=== PATIENT | male | born 1950 | race Caucasian/White ===

== ENCOUNTER → 2017-03-05 | Outpatient (CLI) | payer BC ==
[~2017-03-05] MED LIST: ALBU17AE3 IH; FEXO1TAB49 PO; LISI10TA2 PO; NEBI2.5T5 PO; PRD20T PO
== END ==
LOC: PREOP 05:29
PROVIDERS: ATTEND Internal Medicine
DX: Z01.818 Encounter for other preprocedural examination (principal); Z12.11 Encounter for screening for malignant neoplasm of colon

== ENCOUNTER 2017-09-03 05:31 | Outpatient (CLI) | payer BC ==
[~2017-09-03] VITALS: Ht 172.7 cm; Wt 106.6 kg
[2017-09-03] MEDS ORDERED: LISI10TA2 PO (14:52)
[2017-09-03] MEDS ORDERED: NEBI5TAB8 PO (14:52)
== END 2017-09-03 14:54 ==
LOC: PREOP 05:31
PROVIDERS: ATTEND Internal Medicine
DX: Z01.818 Encounter for other preprocedural examination (principal); Z12.11 Encounter for screening for malignant neoplasm of colon

== ENCOUNTER 2017-09-10 07:53 | Day surgery (SDC) | payer BC ==
[~2017-09-10] VITALS: Ht 172.7 cm; Wt 106.6 kg
[~2017-09-10 07:53] MED LIST changes: +NEBI5TAB8 PO
[2017-09-10] MEDS ORDERED: D5 LR IV SOLUTION 1,000 ML IV STA (07:59)
[2017-09-10] MEDS ORDERED: LIDOCAINE JELLY 2% (XYLOCAINE) 5 ML TUBE MM PRN (08:00)
[2017-09-10] MEDS ORDERED: MIDAZOLAM 2 MG/2 ML (VERSED) VIAL IVP PRN (08:00)
[2017-09-10] MEDS ORDERED: D5 LR IV SOLUTION 1,000 ML IV ONE (08:07)
[2017-09-10 08:17] VITALS: BP 139/64
[2017-09-10] MEDS ORDERED: MIDAZOLAM 2 MG/2 ML (VERSED) VIAL ONE ×2 (09:00)
[2017-09-10] MEDS ORDERED: fentaNYL INJECTION 100 MCG/2 ML AMP ONE (09:00)
[2017-09-10] MEDS ORDERED: LIDOCAINE JELLY 2% (XYLOCAINE) 5 ML TUBE ONE (09:00)
--- NOTE | 2017-09-10 09:06 | Pre-Op Note & Conscious Sedat ---
Pre-Operative Progress Note H&P Reviewed The H&P was reviewed, patient examined and no changes noted. Date H&P Reviewed: Sep 10, 2017 Time H&P Reviewed: 09:00 Conscious Sedation Pre-Proced ASA Class: 2 Airway Mallampati Classification: (red cliff appropriate class) I. II. III, IV Lungs Heart ASA score ASA 1: a normal healthy patient ASA 2: a patient with a mild systemic disease (mid diabetes, controlled hypertension, obesity ASA 3: a patient with a severe systemic disease that limits activity (angina , COPD, prior Myocardial infarction) ASA 4: a patient with an incapacitating disease that is a constant threat to life (CHF, renal failure) ASA 5: a moribund patient not expected to survive 24 hrs. (ruptured aneurysm) ASA 6: a declared brain patient whose organs are being harvested. For emergent operations, add the letter E after the classification Grade 4 Sedation Plan: Analgesia, Amnesia, Plan communicated to team members, Discussed options with patient/fam, Discussed risks with patient/fam Note The patient is an appropriate candidate to undergo the planned procedure, sedation, and anesthesia. The patient immediately re-assessed prior to indication. ANYI BENOIT MD Sep 10, 2017 09:06
[2017-09-10] MEDS: fentaNYL INJECTION 100 MCG/2 ML AMP IVP PRN ×2 (09:11→09:20)
[2017-09-10 10:00] VITALS: BP 137/65
[2017-09-10 10:30] VITALS: BP 130/67
[2017-09-10 10:40] VITALS: BP 130/67
--- NOTE | 2017-09-10 15:15 | OPERATIVE REPORT ---
DATE OF SERVICE: COLONOSCOPY SUMMARY INDICATION FOR THE PROCEDURE: Screening colonoscopy. The patient was placed in left lateral decubitus position. Prior to undergoing colonoscopy, digital rectal evaluation was performed. Anal sphincter tone was normal and the perianal reflex was intact. The prostate was mildly enlarged, anodular and nontender to digital inspection. No abnormalities noted on digital inspection of anal canal or distal rectal vault. The colonoscope was then inserted into the rectum under direct visualization and advanced to the cecum. The cecum was identified by identification of the ileocecal valve and cecal strap. Photographic documentation was obtained. Careful inspection was made as the colonoscope was withdrawn. The patient tolerated the procedure well. FINDINGS: There were no evidence for internal or external hemorrhoids and the rectum was unremarkable. Present in the mid sigmoid colon was a diminutive 3 x 4 mm sessile polyp with uniform mucosal features. It was biopsied and ablated and submitted for histopathology with no subsequent blood loss. One or 2 small proximal sigmoid diverticulum were present with no evidence for diverticulitis. The descending colon, splenic flexure, transverse colon, hepatic flexure, ascending colon and cecum were normal. ASSESSMENT: One diminutive polyp was removed from the sigmoid colon. As long as there are no surprises on histopathology report, we will be abdicating consideration for repeat screening colonoscopy in 10 years. Two small proximal sigmoid diverticulum were present. Digital evaluation of the prostate was compatible with mild benign prostatic hypertrophy. Job ID: [id number] DocumentID: [id number] Dictated Date: 09/10/2017 10:39:30 Billing Associate Date: 09/10/2017 15:15:10 Dictated By: ANYI BENOIT MD MTDD
== END 2017-09-10 10:40 | disposition home or self-care (01) ==
LOC: ENDO 07:53
PROVIDERS: ATTEND Internal Medicine
DX: Z12.11 Encounter for screening for malignant neoplasm of colon (principal); K63.5 Polyp of colon; I12.9 Hypertensive chronic kidney disease with stage 1 through stage 4 chronic kidney disease, or unspecified chronic kidney disease; N18.3 Chronic kidney disease, stage 3 (moderate); J45.909 Unspecified asthma, uncomplicated; Z79.899 Other long term (current) drug therapy

== ENCOUNTER 2018-08-12 05:32 | Outpatient (CLI) | payer BC ==
[~2018-08-12] VITALS: Ht 172.7 cm; Wt 111.1 kg
[2018-08-12] MEDS ORDERED: FLUT1DIS26 IH (10:28)
[2018-08-12] MEDS ORDERED: RT-ALBUINH IH (10:28)
== END 2018-08-12 10:44 | disposition home or self-care (01) ==
LOC: PREOP 05:32
PROVIDERS: ATTEND Surgery
DX: Z01.818 Encounter for other preprocedural examination (principal)

== ENCOUNTER 2018-08-19 06:45 | Day surgery (SDC) | payer BC ==
[2018-08-19] VITALS (8 sets, daily range): BP systolic 131–153; BP diastolic 64–81
[~2018-08-19] VITALS: Ht 172.7 cm; Wt 111.1 kg
[~2018-08-19 06:45] MED LIST changes: +FLUT1DIS26 IH; +RT-ALBUINH IH
[2018-08-19] MEDS ORDERED: proPOfol 200 MG/20 ML (DIPRIVAN) VIAL IV ONE (07:13)
[2018-08-19] MEDS ORDERED: MIDAZOLAM 2 MG/2 ML (VERSED) VIAL ONE ×2 (07:14→08:36)
[2018-08-19] MEDS ORDERED: KETAMINE/NaCl 50 MG/5 ML SYRINGE ONE (07:14)
[2018-08-19] MEDS ORDERED: LACTATED RINGERS 1,000 ML IV PRN (07:43)
[2018-08-19] MEDS ORDERED: ceFAZolin INJECTION 1,000 MG in WATER (STERILE) FOR INJECTION 10 ML IV ONE (07:45)
--- NOTE | 2018-08-19 08:20 | Progress Note-Pre Operative ---
Pre-Operative Progress Note H&P Reviewed The H&P was reviewed, patient examined and no changes noted. Time Seen by Provider: 08:16 Date H&P Reviewed: Aug 19, 2018 Time H&P Reviewed: 08:16 Pre-Operative Diagnosis: Left Facial mass ANDRES JIMENEZ DO Aug 19, 2018 08:20
[2018-08-19] MEDS ORDERED: BUP/EPI 0.5% 1:200,000 (SENSORCAINE) 30 ML VIAL ONE (08:33)
[2018-08-19] MEDS ORDERED: LIDOCAINE 1% INJ 20 ML 20 ML VIAL ONE (08:33)
--- NOTE | 2018-08-19 08:58 | Progress Note-Post Operative ---
Post-Operative Progess Note Surgeon (s)/Dust Puller (s) Surgeon ANDRES JIMENEZ DO Dust Puller: none Pre-Operative Diagnosis Left Facial mass Post-Operative Diagnosis same pending path Procedure & Operative Findings Date of Procedure 08/19/18 Procedure Performed/Findings Excision left facial mass, 3.7 cm incision Anesthesia Type MAC Estimated Blood Loss Estimated blood loss (mL): 3ml Specimens/Packing Specimens Removed left facial mass ANDRES JIMENEZ DO Aug 19, 2018 08:58
[2018-08-19] MEDS ORDERED: ACHD5005 PO (09:00)
--- NOTE | 2018-08-19 09:00 | Discharge Inst-Surgical ---
Discharge Inst-Surgical Depart Medication/Instructions New, Converted or Re-Newed RX: RX Given to Pt/Family Patient Instructions Follow up Appt: Make appointment for 1 week. [phone] Instructions: No strenuous activity, for today. May shower in 24 hours, no tub bath or soaking. No Smoking Skin/Wound Care: May remove bandages in am. You need to leave the Dermabond on incision it will fall off on it's own. Symptoms to Report: Appetite Changes, Extremity Discoloration, Numbness/Tingling, Swelling Increased, Bleeding Excessive, Eyesight Changes, Pain Increased, Urine Color Change, Constipation(Persistent), Fever over 101 degree F, Pain/Pressure in chest, Urinating Difficulty, Cough Up/Vomit Blood, Heart Beat Irreg/Pounding, Pain/Pressure in jaw, Cramps in feet or legs, Lightheadedness, Pain/Pressure in shoulder, Diarrhea(Persistent), Memory Changes Suddenly, Questions/Concerns, Weight gain consecutive days, Dizziness/Fainting, Nausea/Vomiting, Shortness of Breath, Weight gain over 2 pounds If questions or concerns contact your physician Or seek help at emergency department. Activity Activity as Tolerated: Yes Activity Instructions: Avoid Stress to Incision Driving Instructions: No Driving/Refer to Dr. Murry Discharge Diet: No Restrictions Diet After 24 Hours: Clear Liquid if Nauseous If Any Problems/Questions/Issu: Contact Your Physician, Go to Emergency Room Skin/Wound Care Infection Signs and Symptoms: Increased Redness, Foul Odor of Wound, Increased Drainage, Skin Itchy or Has a Rash, Increased Swelling, Temperature Above 101 F Bathing Instructions: Shower Stitches/Carlos/Dermabond Dis: ANDRES Gary DO Aug 19, 2018 09:00
[2018-08-19] MEDS ORDERED: ONDANSETRON 4 MG/2 ML (SDV) Z0FRAN IVP PRN (09:15)
[2018-08-19] MEDS ORDERED: morphine INJ 10 MG/ML 1ML (SYR OR VIAL) IVP ONE (09:15)
--- NOTE | 2018-08-19 13:19 | OPERATIVE REPORT ---
DATE OF SERVICE: 08/19/2018 PREOPERATIVE DIAGNOSIS: Left facial mass. POSTOPERATIVE DIAGNOSIS: Left facial mass, pending pathology. PROCEDURE PERFORMED: Excision of left facial mass, 3.7 cm incision. SURGEON: Kiran Abarca DO. TERRAZZO INSTALLER: None. ANESTHESIA: MAC plus local lidocaine. SPECIMEN: Left facial mass, measured about 3.7 cm x 1.5 cm. BLOOD LOSS: Less than 3 mL. FLUIDS: Per Anesthesia. POSTOPERATIVE CONDITION: Stable. INDICATION FOR PROCEDURE: The patient is a 67-year-old male, who had a mass just in front of his ear right at the sideburn hairline, it was burned or frozen off, but did not go away, it looked worse, got more puffy and wanted to get this removed. FINDINGS: The patient had a left facial mass removed and sent to pathology. PROCEDURE NOTE: After informed consent was obtained, the patient was brought to the operating room, placed on the table in supine position, sterilely prepped and draped in normal fashion. Local lidocaine was used to infiltrate the skin around this mass and then made an elliptical incision with a #15 blade, carried down through the skin into the subcutaneous tissue, deepened down to the subcutaneous tissue and cut off completely with the #15-blade. It measured 3.7 cm x 1.5 cm. This was then passed off table and sent to pathology. At this point, then hemostasis obtained using Bovie electrocautery and created flaps in a superior and inferior direction to be able to bring the skin together. I then elected to close the incision with 4-0 undyed Monocryl, 4 interrupted subcuticular stitches were used. Area was cleaned and dried. Dermabond placed as well as a Band-Aid. The patient was then transferred to recovery room in stable condition. Sponge, instrument and needle count correct at the end of the case. Job ID: [id number] DocumentID: [id number] Dictated Date: 08/19/2018 08:57:44 Pivot End Polisher Date: 08/19/2018 13:19:05 Dictated By: KIRAN ABARCA DO
--- NOTE | 2018-08-19 13:52 | Anesthesia-General Post-Op ---
MAC Patient Condition Mental Status/LOC: Same as Preop Cardiovascular: Satisfactory Nausea/Vomiting: Absent Respiratory: Satisfactory Pain: Controlled Complications: Absent Post Op Complications Complications None Follow Up Care/Instructions Patient Instructions None needed. Anesthesiology Discharge Order Discharge Order Patient is doing well, no complaints, stable vital signs, no apparent adverse anesthesia problems. No complications reported per nursing. CHRIS TERRELL CRNA Aug 19, 2018 13:52
== END 2018-08-19 10:20 | disposition home or self-care (01) ==
LOC: SDC 06:45
PROVIDERS: ATTEND Surgery
DX: C44.319 Basal cell carcinoma of skin of other parts of face (principal); I10 Essential (primary) hypertension; J45.909 Unspecified asthma, uncomplicated; G47.33 Obstructive sleep apnea (adult) (pediatric); E66.9 Obesity, unspecified; Z68.37 Body mass index [BMI] 37.0-37.9, adult; Z79.899 Other long term (current) drug therapy
CPT/HCPCS: 87081

== ENCOUNTER → 2019-01-24 | Outpatient (CLI) | payer BC ==
[~2019-01-24] MED LIST changes: +ACHD5005 PO
--- NOTE | 2019-01-24 14:01 | Diagnostic Imaging Report ---
PROCEDURE: US Renal Bilateral. TECHNIQUE: Multiple real-time grayscale images were obtained over the kidneys in various projections bilaterally. INDICATION: Elevated creatinine. FINDINGS: There are no prior studies available for comparison. Both kidneys are identified. The right kidney measures 9.2 x 6.6 x 6.4 cm while the left kidney is estimated to be 8.3 x 6.2 x 4.9 cm. There is a roughly 2 cm hypoechoic area along the lateral aspect of the right kidney. This may be related to lobulation of the cortex as opposed to a discrete renal mass. If further imaging is desired, then CT will be recommended. There is no other mass or cyst involving either kidney. There is no sign of hydronephrosis. The renal cortex of the right kidney is somewhat thinned compared to the left. The cortex is normal in echogenicity, however. There is no shadowing of the kidneys to indicate nephrolithiasis. The bladder was imaged during the course of this exam. The bladder is only partially filled and consequently not well evaluated. There is no obvious bladder abnormality evident. IMPRESSION: 1. There is no evidence for an acute abnormality of either kidney. 2. The hypoechoic area along the lateral aspect of the right kidney may merely be secondary to lobulation of the cortex as opposed to a renal mass. Even so, CT will be recommended for further evaluation unless there are prior exams available to demonstrate that this finding is stable. 3. The urinary bladder is grossly unremarkable. Dictated by: Dictated on workstation # [id number]
== END ==
LOC: RAD 12:31
PROVIDERS: ATTEND Internal Medicine
DX: I12.9 Hypertensive chronic kidney disease with stage 1 through stage 4 chronic kidney disease, or unspecified chronic kidney disease (principal); N18.3 Chronic kidney disease, stage 3 (moderate)
CPT/HCPCS: 76770

== ENCOUNTER → 2019-02-09 | Outpatient (CLI) | payer BC ==
--- NOTE | 2019-02-09 15:23 | Diagnostic Imaging Report ---
PROCEDURE: MR imaging abdomen without contrast. TECHNIQUE: Multiplanar, multisequence MR imaging of the abdomen was performed without contrast. INDICATION: Abnormal renal ultrasound. COMPARISON: There are no previous MRI examinations available for comparison. FINDINGS: The recent renal ultrasound exam performed on 01/24/2019 noted both kidneys. The kidney seemed similar in size. There was a roughly 2 cm hypoechoic area along the lateral aspect of the right kidney. On this exam, there is only a single kidney identified. This kidney lies in the upper pelvis just to the left of midline. 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 The kidney does not appear to be obstructed and there is no abnormal signal arising from the renal parenchyma to suggest a solid or cystic mass. 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 The urinary bladder where visualized is generally unremarkable. There is no other abnormality of the abdomen or pelvis noted. IMPRESSION: 1. There is a single kidney identified. The kidney lies just to the left of midline in the lower abdomen/pelvis. There is no discrete solid or cystic renal mass identified. 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 2. 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 If there are previous cross-sectional imaging studies available for comparison, they would be helpful. 3. There is no acute abnormality noted. 4. These results were discussed with Dr. Destin Floyd. Dictated by: Dictated on workstation # [id number]
== END ==
LOC: RAD 12:44
PROVIDERS: ATTEND Internal Medicine
DX: N28.89 Other specified disorders of kidney and ureter (principal)
CPT/HCPCS: 74181

== ENCOUNTER → 2022-02-11 | Outpatient (CLI) | payer BC ==
[~2022-02-11] VITALS: Ht 170.2 cm; Wt 105.0 kg
[~2022-02-11] MED LIST changes: +ALBU8.5H6 IH; +ALLO300T2 PO; +DILT60TA PO; +FURO40TA4 PO; -LISI10TA2 PO; +LISI10TA25 PO; -RT-ALBUINH IH
== END ==
LOC: PREOP 05:30
PROVIDERS: ATTEND Surgery
DX: Z01.818 Encounter for other preprocedural examination (principal); K40.20 Bilateral inguinal hernia, without obstruction or gangrene, not specified as recurrent

== ENCOUNTER 2022-02-18 06:58 | Day surgery (SDC) | payer BC ==
[2022-02-18] VITALS (9 sets, daily range): BP systolic 145–166; BP diastolic 67–80
[~2022-02-18] VITALS: Ht 170 cm; Wt 105.0 kg
[2022-02-18] MEDS ORDERED: BUP/EPI 0.25% 1:200,000 (MARCAINE) 30 ML VIAL ONE (07:15)
[2022-02-18] MEDS ORDERED: ceFAZolin INJECTION 2,000 MG in NS (IVPB) 50 ML IV ONE (07:30)
[2022-02-18] MEDS ORDERED: ONDANSETRON 4 MG/2 ML (SDV) Z0FRAN ONE (07:35)
[2022-02-18] MEDS ORDERED: LIDOCAINE PF 2% 5 ML (XYLOCAINE) VIAL ONE (07:35)
[2022-02-18] MEDS ORDERED: proPOfol 200 MG/20 ML (DIPRIVAN) VIAL IV ONE (07:35)
[2022-02-18] MEDS ORDERED: SEVOFLURANE (ULTANE) 15 ML INHAL SOLN ONE ×3 (07:35→10:38)
[2022-02-18] MEDS ORDERED: ROCURONIUM 10 MG/ML 5 ML SYRINGE IV ONE (07:35)
[2022-02-18] MEDS ORDERED: MIDAZOLAM 2 MG/2 ML (VERSED) VIAL ONE (07:35)
[2022-02-18] MEDS ORDERED: fentaNYL INJ 100 MCG/2 ML AMP ONE (07:35)
[2022-02-18] MEDS: LACTATED RINGERS 1,000 ML IV PRN ×2 (07:42→09:14)
[2022-02-18] MEDS ORDERED: BUP/EPI 0.25% 1:200,000 (MARCAINE) 30 ML VIAL INJ ONE (09:14)
--- NOTE | 2022-02-18 11:11 | Progress Note-Post Operative ---
Post-Operative Progess Note Surgeon (s)/Glassware Verifier (s) Surgeon ANDRES JIMENEZ DO Glassware Verifier: Kishore Pre-Operative Diagnosis BILATERAL INGUINAL HERNIA Post-Operative Diagnosis Same - indirect B/L cord lipoma Procedure & Operative Findings Date of Procedure 02/18/22 Procedure Performed/Findings 1) Bilateral inguinal hernia with mesh placement 2) Exc of bilateral cord lipoma After informed consent was obtained, the patient was brought to the operating room and placed on the operating table in a supine position. He was sterilely prepped and draped in a normal fashion. Local lidocaine was used to infiltrate the skin above the umbilicus. I made an incision with #11 blade, carried down to the skin into subcutaneous tissue and then deepened down the subcutaneous tissue with Bovie electrocautery down to the fascia. Fascia was incised with Bovie electrocautery and bluntly entered the abdomen, swept a finger around, placed 0 Vicryl [id number] suture and placed limited trocar port under direct visualization. Created pneumoperitoneum, able to visualize the hernia and took a picture of this and then placed two 8 mm ports about 10 cm on either side of the midline port using a local lidocaine, 11 blade for stab incision and then advanced the robotic port under direct visualization. Once this was in, I then placed the patient in Trendelenburg and then placed the working instruments, the fenestrated bipolar and the scissors. Looked on the left side and could see the bulge from the pelvic kidney. He also had some adhesions in the midline and had to take these down to be able to see. It was difficult to see his inguinal hernias. His anatomy was different and I elected to come across the peritoneum approximately 8 cm away from the inguinal canals, going across laterally starting lateral about 15cm and cutting toward the median umbilical ligament. I started on the right side and then carefully dissected the visceral peritoneum away and down and then in the midline, went through the parietal side and dissected down to the pubic tubercle, dissecting this down carefully pushing the peritoneum away, I was able to then visualize the pubic tubercle and Agustin's ligament. I went 2 cm posterior and at this point, we then had a critical view of the dissection, able to dissect 2 cm across the midline to the right side, 2 cm posterior to the Agustin's ligament, able to then parietalize the vas deferens and spermatic vessels right at the groove between Agustin's and iliac vein and able t o dissect, make sure there was no peritoneum between those two, able to see the indirect hernia space, took a picture of this, looked at the femoral space (no hernia seen). Then I carefully teased out the hernia sac and could visualize the indirect hernia space. Next I looked on the cord and cord structures. There was a large cord lipoma that I was able to reduce and cut off. This was then removed throught the port to get it out of the peritoneal space. I could clearly see the inguinal canal and the indirect space. Next, able to dissect 2 cm across the midline to the left side, 2 cm posterior to the Agustin's ligament, able to then parietalize the vas deferens and spermatic vessels right at the groove between Agustin's and iliac vein and able to dissect, make sure there was no peritoneum between those two, able to see the indirect hernia space, took a picture of this, looked at the femoral space (no hernia seen). Then I carefully teased out the hernia sac and could visualize the indirect hernia sp brandee. Next I looked on the cord and cord structures. There was a large cord lipoma that I was able to reduce and cut off. I carried the posterior lateral dissection all the way out on both sides. His anatomy also included that on both sides the cord and cord structures seemed to go more lateral than medial; which is not the normal. I then placed a 10 x 16 Midwieght Bard 3DMax mesh on both sides. They laid in nicely, covered the hernia defect and the rest of the area. It was above the peritoneum, sutured both in at the pubic tubercle with a 3-0 Vicryl suture and tied this off. I then threw another suture laterally on each of the mesh. They appeared to lay in very nicely. I then brought down the pneumoperitoneum to about 8 mmHg and then started closing the peritoneum. Started laterally and used a 2-0 V-lock barbed suture to start a running stitch to close the peritoneum. I did this on both sides, it closed nicely, took a picture of the closure at this point, then removed both needles had switched to a suture seasonal delivery driver from the scissors. The patient was then placed back supine, removed all ports under direct visualization, allowed pneumo- peritoneum to escape and then closed the supraumbilical incision, closing the fascia with an 0 Vicryl suture previously placed. Copiously irrigated all incisions and then closed the two small 8 mm incisions with two interrupted 4-0 undyed Monocryl subcuticular stitches and closed the supraumbilical incision with three interrupted undyed Monocryl subcuticular stitch. Area was cleaned and dried. Dermabond was placed. The patient tolerated the procedure. The sponge, instrument and needle counts were correct at the end of the case. Dr. Novak assisted during this surgery by making incisions, closing incisions, helping to identify anatomy and passing/retrieving suture and needles. Anesthesia Type GET Estimated Blood Loss Estimated blood loss (mL): less than 10ml Specimens/Packing Specimens Removed b/l cord lipoma ANDRES JIMENEZ DO Feb 18, 2022 11:11
[2022-02-18] MEDS ORDERED: ACHD5005 PO (11:12)
--- NOTE | 2022-02-18 11:13 | Discharge Inst-Surgical ---
Discharge Inst-Surgical Depart Medication/Instructions New, Converted or Re-Newed RX: Transmitted to Pharmacy Patient Instructions Follow up Appt: Make appointment for 1 week. [phone] Instructions: No lifting greater than 20 pounds. No strenuous activity. May shower in 24 hours, no tub bath or soaking. Use incentive spirometer at home as directed. No Smoking Skin/Wound Care: May remove bandages in am. You need to leave the Dermabond on incision it will fall off on it's own. Symptoms to Report: Appetite Changes, Extremity Discoloration, Numbness/Tingling, Swelling Increased, Bleeding Excessive, Eyesight Changes, Pain Increased, Urine Color Change, Constipation(Persistent), Fever over 101 degree F, Pain/Pressure in chest, Urinating Difficulty, Cough Up/Vomit Blood, Heart Beat Irreg/Pounding, Pain/Pressure in jaw, Cramps in feet or legs, Lightheadedness, Pain/Pressure in shoulder, Diarrhea(Persistent), Memory Changes Suddenly, Questions/Concerns, Weight gain consecutive days, Dizziness/Fainting, Nausea/Vomiting, Shortness of Breath, Weight gain over 2 pounds If questions or concerns contact your physician Or seek help at emergency department. Activity Activity as Tolerated: Yes Activity Instructions: Avoid Stress to Incision Driving Instructions: No Driving/Refer to Dr. Murry Discharge Diet: No Restrictions Diet After 24 Hours: Clear Liquid if Nauseous If Any Problems/Questions/Issu: Contact Your Physician, Go to Emergency Room Skin/Wound Care Infection Signs and Symptoms: Increased Redness, Foul Odor of Wound, Increased Drainage, Skin Itchy or Has a Rash, Increased Swelling, Temperature Above 101 F Wound Care Comment: heating pad to shoulder or neck tonight for pain Bathing Instructions: Shower Stitches/Colby/Dermabond Dis: Dermabond Ice Pack: Ice On and Off Site ANDRES JIMENEZ DO Feb 18, 2022 11:13
--- NOTE | 2022-02-18 11:24 | Anesthesia-General Post-Op ---
General Patient Condition Mental Status/LOC: Same as Preop Cardiovascular: Satisfactory Nausea/Vomiting: Absent Respiratory: Satisfactory Pain: Controlled Complications: Absent Post Op Complications Complications None Follow Up Care/Instructions Patient Instructions None needed. Anesthesia/Patient Condition Patient Condition Patient is doing well, no complaints, stable vital signs, no apparent adverse anesthesia problems. No complications reported per nursing. ROHINI BUNCH CRNA Feb 18, 2022 11:24
[2022-02-18] MEDS ORDERED: morphine INJ 10 MG/ML 1ML (SYR OR VIAL) IVP ONE (11:30)
[2022-02-18] MEDS ORDERED: ONDANSETRON 4 MG/2 ML (SDV) Z0FRAN IVP PRN (11:30)
[2022-02-18] MEDS ORDERED: fentaNYL INJ 100 MCG/2 ML AMP IVP ONE (11:30)
[2022-02-18] MEDS ORDERED: MEPERIDINE (DEMEROL) INJ 50 MG/ML IVP ONE (11:30)
== END 2022-02-18 13:39 | disposition home or self-care (01) ==
LOC: SDC 06:58
PROVIDERS: ATTEND Surgery
DX: K40.30 Unilateral inguinal hernia, with obstruction, without gangrene, not specified as recurrent (principal); K40.90 Unilateral inguinal hernia, without obstruction or gangrene, not specified as recurrent; D17.6 Benign lipomatous neoplasm of spermatic cord; E66.01 Morbid (severe) obesity due to excess calories; G47.33 Obstructive sleep apnea (adult) (pediatric); Z68.36 Body mass index [BMI] 36.0-36.9, adult; Z85.828 Personal history of other malignant neoplasm of skin
CPT/HCPCS: 49650; 87081; C1781 ×2

== ENCOUNTER → 2022-03-06 | Outpatient (CLI) | payer BC ==
--- NOTE | 2022-03-06 13:21 | Diagnostic Imaging Report ---
PROCEDURE: US Scrotum. TECHNIQUE: Multiple real-time grayscale images were obtained over the scrotum in various projections bilaterally. INDICATION: Right scrotal swelling. Right testicle measures 3.9 x 2.3 x 4.0 cm. The left testicle measures 3.4 x 2.1 x 2.0 cm. The right testicle is unremarkable. The left testicle does contain a tiny cyst approximately 3 mm in size. No solid testicular mass is seen. There is blood flow to both testes. Epididymis on the right is unremarkable. Left epididymis is not well-seen. There is a very large cyst versus hydrocele involving the right hemiscrotum, measuring 6.9 x 6.1 cm. No left-sided hydrocele is seen. There is a small varicocele on the left. IMPRESSION: 1. No evidence of solid testicular mass or vascular compromise. 2. Left varicocele. 3. Large cyst versus hydrocele right hemiscrotum. Dictated by: Dictated on workstation # [id number]
== END ==
LOC: RAD 08:46
PROVIDERS: ATTEND Internal Medicine
DX: I86.1 Scrotal varices (principal); N50.89 Other specified disorders of the male genital organs
CPT/HCPCS: 76870

== ENCOUNTER 2022-10-25 09:36 | Emergency (ER) | payer BC ==
[2022-10-25] MEDS ORDERED: LIDOCAINE 1% INJ 10 ML VIAL ONE (10:13)
[2022-10-25] MEDS ORDERED: LIDOCAINE 1% INJ 20 ML VIAL INJ ONE (10:15)
[2022-10-25] MEDS ORDERED: CLIN150C20 PO (10:15)
[2022-10-25] MEDS ORDERED: cefTRIAXone 2,000 MG VIAL IM ONE (10:15)
[2022-10-25] MEDS ORDERED: cefTRIAXone IV/IM 1,000 MG in NS (IVPB) 50 ML 50 ML IV ONE (10:15)
--- NOTE | 2022-10-25 10:15 | ED Lower Extremity ---
General Chief Complaint: Lower Extremity Stated Complaint: RIGHT ANKLE RED/SWOLLEN/PAINFUL Nursing Triage Note: PT AMB TO RM 6 PT CO OF PAIN IN R LOWER EXT PT HAS REDDNESS IN CALF AREA. RATES PAIN 3/10. PT HAS WOUND ON R LOWER LEG FEW WEEKS AGO NOT SURE HOW. PT STATES HAS HAD CHILLS YESTERDAY. Source: patient Exam Limitations: no limitations History of Present Illness Date Seen by Provider: Oct 25, 2022 Time Seen by Provider: 09:58 Initial Comments 72-year-old male presents to the emergency department today for pain, redness in his right mid arredondo, calf. Symptoms present for the last couple of days. He had some chills yesterday but denies any documented fevers. No drainage from the ar ea. Has some chronic swelling in the legs but states is not usually red and warm like this. Is also more tender than it usually is. He did have a cut to the region about 2 weeks ago that had seemingly healed. All other systems reviewed and negative except documented per HPI. Voice recognition software was used to help create this chart Allergies and Home Medications Allergies Coded Allergies: No Known Drug Allergies (Unverified , 08/12/18) Patient Home Medication List Home Medication List Reviewed: Yes Albuterol Sulfate (Ventolin Hfa) 1 Puff Puff, 2 PUFF IH Q4H PRN for SHORTNESS OF BREATH, (Reported) Entered as Reported by: ALEXIA INFANTE on 08/12/18 1028 Allopurinol (Allopurinol) 300 Mg Tablet, 150 MG PO DAILY, (Reported) Entered as Reported by: KEIRY HUSTON on 02/12/22 1137 Diltiazem HCl (Diltiazem HCl) Unknown Strength Tablet, Unknown Dose PO DAILY, (Reported) Entered as Reported by: KEIRY HUSTON on 02/12/22 1137 Fluticasone/Salmeterol (Advair 250-50 Diskus) 1 Each Blst.w.dev, 1 EACH IH DAILY, (Reported) Entered as Reported by: ALEXIA INFANTE on 08/12/18 1028 Furosemide (Furosemide) 40 Mg Tablet, 40 MG PO PRN, (Reported) Entered as Reported by: KEIRY HUSTON on 02/12/22 1137 Hydrocodone Bit/Acetaminophen (HYDROcodone/APAP 5 MG/325 MG TAB) 1 Tab Tab, 1 TAB PO Q8H PRN for PAIN-MODERATE (5-7) Prescribed by: ANDRES JIMENEZ on 02/18/22 1113 Nebivolol HCl (Bystolic) 5 Mg Tablet, 5 MG PO DAILY, (Reported) Entered as Reported by: BROCK SOLORIO on 09/03/17 1452 Review of Systems Constitutional: see HPI Past Gyafzdw-Cuslen-Wmzdpp Hx Patient Social History Tobacco Use?: No Tobacco type used: Cigars Smoking Status: Former Smoker Substance use?: No Alcohol Use?: Yes Alcohol type: Beer Alcohol Frequency: Rarely Pt feels they are or have been: No Immunizations Up To Date First/Initial COVID19 Vaccinat: 2020 Second COVID19 Vaccination Paolo: 2020 Third COVID19 Vaccination Date: 2021 Seasonal Allergies Seasonal Allergies: Yes Past Medical History Surgery/Hospitalization HX: CHRONIC KIDNEY DISEASE, HTN, HX ASHTMA, EYE SURG, T AND A. HERNIA REPAIR BILAT INGUINAL HERNIA. Surgeries: Yes (eye sx x5 when a kid, ) Adenoidectomy, Eye Surgery, Nephrectomy, Tonsillectomy Respiratory: Yes (NASAL POLYPS) Asthma, Sleep Apnea Currently Using CPAP: Yes Cardiac: Yes Hypertension Neurological: No Reproductive Disorders: No Sexually Transmitted Disease: No HIV/AIDS: No Genitourinary: Yes (STAGE 3 CKD) Renal Failure Gastrointestinal: Yes (HERNIA ) Musculoskeletal: Yes (RT HAND) Arthritis, Gout Endocrine: No HEENT: No (GLASSES) Loss of Vision: Bilateral Hearing Impairment: Denies Cancer: No Psychosocial: No Integumentary: No Blood Disorders: No Adverse Reaction/Blood Tranf: No (N/A) Physical Exam Vital Signs Vital Signs - First Documented 10/25/22 09:44 Temp 36.7 Pulse 67 Resp 15 B/P (MAP) 172/78 (109) Pulse Ox 99 Capillary Refill : Less Than 3 Seconds Height, Weight, BMI Height: 5'8.00" Weight: 245lbs. 0.0oz. [id number]; BMI Method:Stated General Appearance: WD/WN, no apparent distress HEENT: normal ENT inspection, pharynx normal Cardiovascular: regular rate, rhythm, no murmur Respiratory: chest non-tender, lungs clear, normal breath sounds, no respiratory distress, no accessory muscle use Gastrointestinal: non tender, soft Hips: bilateral hip non-tender, bilateral hip normal inspection, bilateral hip normal range of motion Legs: left leg non-tender, left leg normal inspection, left leg normal range of motion; right leg other (Warmth and redness from the right mid arredondo down to about the ankle with some streaking of redness down to his toes. There is no fluctuance or induration.) Neurologic/Tendon: normal sensation, normal motor functions Neurologic/Psychiatric: alert, oriented x 3 Skin: other (As described elsewhere) Progress/Results/Core Measures Results/Orders Vital Signs/I&O 10/25/22 09:44 Temp 36.7 Pulse 67 Resp 15 B/P (MAP) 172/78 (109) Pulse Ox 99 Blood Pressure Mean: 109 Departure Communication (Admissions) Patient is hemodynamically stable. Differential diagnosis includes cellulitis, DVT, arterial occlusion. Exam shows good pulses, capillary refill, doubt arterial occlusion. Exam is also consistent with cellulitis given streaking of the redness appearance and warmth. We will trial antibiotics at this time. He could still have a DVT so advised that if he does not get better in the next 48 hours follow-up with his primary doctor return to the emergency department. Will come in immediately for any chest pain or shortness of breath. Impression Primary Impression: Cellulitis Qualified Codes: L03.115 - Cellulitis of right lower limb Disposition: 01 HOME, SELF-CARE Condition: Stable Departure-Patient Inst. Referrals: ANYI BENOIT MD (PCP/Family) Primary Care Physician Patient Instructions: Cellulitis (Skin Infection), Adult ED Add. Discharge Instructions: Take the antibiotics as prescribed until they are gone. Do not stop taking the simply because the area looks better you are feeling better. I recommend you turn to the emergency department if your symptoms are not improving in the next 48 hours or if they change in any way concerning to you. Follow-up with your primary doctor if her symptoms are not improving at all that has you may need an ultrasound to rule out a blood clot in your leg. You may have this done in our emergency department but we only have ultrasound available Wednesday through Wednesday during business hours. Return immediately if you develop any chest pain or shortness of breath. All discharge instructions reviewed with patient and/or family. Voiced understanding. Scripts Clindamycin HCl (Clindamycin HCl) 150 Mg Capsule 300 MG PO TID for 10 Days, #60 CAP Prov: JENNIFFER,VIOLETTE L DO 10/25/22 VIOLETTE ABAD DO Oct 25, 2022 10:15
[2022-10-25 10:33] VITALS: BP 144/73
== END 2022-10-25 10:34 | disposition home or self-care (01) ==
LOC: EDUNIT# 09:36 → ER 09:39
DX: L03.115 Cellulitis of right lower limb (principal); G47.30 Sleep apnea, unspecified; Z99.89 Dependence on other enabling machines and devices; Z87.891 Personal history of nicotine dependence
CPT/HCPCS: 99284

== ENCOUNTER → 2022-10-30 | Outpatient (CLI) | payer BC ==
[~2022-10-30] MED LIST changes: +CLIN150C20 PO
--- NOTE | 2022-10-30 11:50 | Diagnostic Imaging Report ---
PROCEDURE: US right lower extremity venous. TECHNIQUE: Multiple real-time grayscale images were obtained over the right lower extremity in various projections. Additional spectral analysis and color Doppler duplex images were also obtained. INDICATION: Right lower extremity edema. FINDINGS: There is no evidence of right lower extremity DVT. Right lower extremity deep venous system shows normal compressibility with normal response to augmentation and Valsalva. No fluid collection or mass is detected. IMPRESSION: No evidence of right lower extremity DVT. Dictated by: Dictated on workstation # [id number]
== END ==
LOC: RAD 10:36
PROVIDERS: ATTEND Nurse Practitioner Family
DX: R60.0 Localized edema (principal); M79.604 Pain in right leg